=== PATIENT | female | born 1950 | race Caucasian/White ===

== ENCOUNTER → 2016-06-11 | Outpatient (CLI) | payer OTHER | END | disposition home or self-care (01) | LOC: GMAB 12:29 | PROVIDERS: ATTEND Family Medicine | DX: I10 Essential (primary) hypertension (principal) ==

== ENCOUNTER → 2017-01-13 | Outpatient (CLI) | payer OTHER | END | disposition home or self-care (01) | LOC: GMAB 11:12 | PROVIDERS: ATTEND Family Medicine | DX: M79.641 Pain in right hand (principal); M79.642 Pain in left hand ==

== ENCOUNTER → 2017-01-18 | Outpatient (CLI) | payer OTHER | END | disposition home or self-care (01) | LOC: BFHH 16:32 | PROVIDERS: ATTEND Family Medicine | DX: D64.9 Anemia, unspecified (principal) ==

== ENCOUNTER → 2017-02-08 | Outpatient (CLI) | payer OTHER ==
--- NOTE | 2017-02-09 10:29 | MRI ---
EXAM DESCRIPTION: Cervical Spine CLINICAL HISTORY: RADICULOPATHY COMPARISON: MRI scan cervical spine 05/31/2014. TECHNIQUE: Multiplanar MRI, multiple sequences, non-contrast High-field. FINDINGS: C5-6 fusion construct in the interval since the prior study with ACDF. Customary position and near-anatomic alignment. No soft tissue mass abutting the hardware. Bilateral uncinate spurs and moderate neural foraminal stenosis. No abnormal marrow edema in the vertebral bodies or the posterior elements. Mild to moderate canal narrowing. C4-5: Anterior and disc bulge and endplate ridging impressing on the posterior airway. Disc desiccation with posterior disc bulge 3 mm abutting the cord. Bilateral disc uncinate spur encroachment on the neural foramina with bilateral moderate neural foraminal stenosis. Facets are negative. C6-7: Minimal anterior disc bulge. Desiccated disc. Tiny posterior disc bulge not touching the disc. Moderate bilateral neural foraminal narrowing with fatty encasement of the bilateral naris. Posterior hypertrophy ligaments. Bilateral mild facet arthrosis. T1-2 discs with minimal desiccation with minimal posterior bulge not touching the cord. Canal and bilateral neural foraminal narrowing. Grade 1 anterolisthesis. C7-T1: Disc desiccation posterior midline bulge to 3 mm abutting the ventral cord. Disc bulge into the bilateral foramina. Mild neural foraminal stenosis from uncinate spur, and moderate neural foraminal narrowing on the left. Facet arthrosis on the right Normal signal in the C2-3 and C3-4 disks with no bulging. Disc spaces preserved. Canal and neural foramina are patent. Facets are unremarkable. No cord compression or cord edema. Spine is slightly kyphotic C1-C6. Atlantoaxial joint is minimally hypertrophied. Base of the cerebellar tonsils is above the level of the foramen magnum. Paravertebral soft tissues are unremarkable. Vertebral bodies are not compressed at any level. Normal marrow signal in the remaining vertebral bodies and the posterior elements. IMPRESSION: 1. ACDF fusion construct C5-C6. Customary position and near-anatomic alignment. No MRI evidence of complications with hardware. However bilateral uncinate spurs contributing to bilateral neural foraminal stenosis. 2. Bilateral disc and uncinate spur encroachment at C4-5 on the neural foramina with stenosis. Anterior disc bulge complex impressing on the posterior airway. Similar findings on the prior study. 3. Mild right neural foraminal stenosis C7-T1 from uncinate spur and disc. Electronically signed by: Manjinder Riley MD 02/09/2017 10:28 AM [facility]
== END | disposition home or self-care (01) ==
LOC: MRI 08:01
PROVIDERS: ATTEND Family Medicine
DX: M54.12 Radiculopathy, cervical region (principal)

== ENCOUNTER → 2017-07-15 | Outpatient (CLI) | payer OTHER ==
--- NOTE | 2017-07-16 09:15 | US ---
EXAM DESCRIPTION: Gall Bladder CLINICAL HISTORY: 67 years Female, EPIGASTRIC PN COMPARISON: None available. TECHNIQUE: Multiple transverse and longitudinal static sonographic images through the right upper quadrant of the abdomen were obtained. FINDINGS: Visualized portions of the pancreas appear normal. The liver demonstrates normal size and echogenicity with no intrahepatic biliary ductal dilatation. No focal masses are identified sonographically. The gallbladder is not well distended with possible sludge or small stones. No evidence of wall thickening or hyperemia or pericholecystic fluid. The common duct is nondilated and measures 3.3 mm. The right kidney measures 9.8 x 5.5 x 4.1 cm. No hydronephrosis or perinephric fluid collections. IMPRESSION: Contracted gallbladder with possible sludge or small stones. Otherwise normal ultrasound of the right upper quadrant. Electronically signed by: Noelle Hawkins MD 07/16/2017 9:14 AM CDT
== END ==
LOC: US 10:38
PROVIDERS: ATTEND Family Medicine
DX: R10.13 Epigastric pain (principal)

== ENCOUNTER → 2017-07-29 | Outpatient (CLI) | payer OTHER ==
--- NOTE | 2017-07-30 16:13 | NM ---
EXAM DESCRIPTION: Hepatobiliary w/CCK: Nuclear Medicine. CLINICAL HISTORY: R12,K8010,K219 COMPARISON: Ultrasound gallbladder 07/15/2017. TECHNIQUE: Patient was given 8.2 mCi of technetium 99 M mebrofenin radiopharmaceutical IV. Anterior gamma camera images were obtained of the right upper quadrant at 1 minute intervals for one hour . The patient was then given 14 ounces of .Ensure Plus fatty meal (11 g fat). Gallbladder ejection fraction was evaluated by measuring diminishing radioactivity in the gallbladder, over 30 min interval. FINDINGS: After administration of radiopharmaceutical IV, immediate visualization of the entire liver. Timely visualization of intrahepatic and extra hepatic ducts, duodenum and the gallbladder. No focal areas of abnormally increased or decreased activity in the liver. After patient was given fatty meal, mild epigastric pain was reproduced. Peak gallbladder activity approximately 2.5 minutes after fatty meal was ingested. Minimal gallbladder activity in approximately 29 minutes after fatty meal was ingested. Decrease in activity during this interval was 32.1%. IMPRESSION: 1. No intrahepatic or extrahepatic biliary dilatation. Timely visualization of the gallbladder and duodenum. 2. Gallbladder ejection fraction is 32 % which is below minimum normal range. This can be due to gallbladder dyskinesia or chronic cholecystitis. Electronically signed by: Manjinder Riley MD 07/30/2017 4:11 PM CDT
== END ==
LOC: NM 10:00
PROVIDERS: ATTEND Internal Medicine Gastroenterology
DX: R12 Heartburn (principal); K80.10 Calculus of gallbladder with chronic cholecystitis without obstruction; K21.9 Gastro-esophageal reflux disease without esophagitis; R10.13 Epigastric pain

== ENCOUNTER → 2017-08-11 | Outpatient (CLI) | payer OTHER ==
--- NOTE | 2017-08-12 09:13 | RAD ---
EXAM DESCRIPTION: Barium Swallow: Rad-Fluoroscopy. CLINICAL HISTORY: R12 ,K8010,K219 COMPARISON: Radionuclide hepatobiliary scan 07/29/2017. TECHNIQUE: The patient swallowed barium pill with water. The patient swallowed gas-producing granules, water, and heavy density barium under fluoroscopic visualization. The images were obtained with the patient standing and horizontal.. Patient drank medium density barium through a straw in the semi-prone position. 106 fluoroscopic cine loop images. 9 static fluoroscopic images. Total fluoroscopy time was 2.5 minutes.. DAP: 19.62 Gy-cm2.. FINDINGS: The barium pill was swallowed with water and was momentarily suspended at the gastroesophageal junction then entered the stomach. No laryngeal penetration or aspiration. Patient had 2 swallows with each bolus of contrast with the initial swallow having the largest volume. Primary peristaltic wave involving most of the esophagus. Minimal secondary contractions distally. Small sliding hiatal hernia, predominantly posterior to the esophageal lumen. No mass effect on the esophagus and no mucosal lesions. No rimma gastroesophageal reflux but minimal stasis of oral contrast in the distal esophagus. No gross abnormalities of the stomach. No gastroduodenal obstruction. Sternotomy wires are noted as well as cardiac valve replacements. IMPRESSION: 1. No laryngeal penetration or aspiration. 2. No mass effect on the esophagus and no mucosal lesions. Secondary contractions distal esophagus. Small sliding hiatal hernia. No significant gastroesophageal reflux. Electronically signed by: Manjinder Riley MD 08/12/2017 9:12 AM CDT
== END ==
LOC: RAD 08-05 08:51
PROVIDERS: ATTEND Internal Medicine Gastroenterology
DX: R12 Heartburn (principal); K80.10 Calculus of gallbladder with chronic cholecystitis without obstruction; K21.9 Gastro-esophageal reflux disease without esophagitis; R10.13 Epigastric pain

== ENCOUNTER → 2017-10-06 | Outpatient (CLI) | payer OTHER | LOC: GMAE 10:50 | PROVIDERS: ATTEND Family Medicine | DX: I10 Essential (primary) hypertension (principal) ==

== ENCOUNTER 2018-09-03 19:51 | Emergency (ER) | payer OTHER ==
[2018-09-03] MEDS ORDERED: CHLORHEXIDINE GLUCONATE 4 % 15 ML UD TOP ONE (20:00)
[2018-09-03] MEDS ORDERED: LIDOCAINE 1% 10 ML VIAL INJ ONE (20:01)
--- NOTE | 2018-09-03 20:16 | ED.PDOC ---
History of Present Illness - General Chief Complaint: Laceration Stated Complaint: right thumb laceration Time Seen by Provider: 09/03/18 20:13 Source: patient Exam Limitations: no limitations - History of Present Illness Initial Comments: Carlie Garcia 68 y/o female stated had laceration on right thumb accidentally injure it with jerilyn while peeling vegetable at home. Timing/Duration: this evening Severity: moderate Location: extremities - right thumb Improving Factors: nothing Worsening Factors: movement Associated Symptoms: change in skin texture Allergies/Adverse Reactions: Allergies Codeine Allergy (Verified 09/03/18 20:18) Home Medications: Ambulatory Orders Amoxicillin [Amoxil] 1,000 mg PO BID 7 Days #28 cap 09/03/18 Review of Systems - Review of Systems Skin: States: see HPI, other - laceration Past Medical History (General) - Patient Medical History Hx Cardiac Disorders: Yes Hx Hypertension: Yes Surgical History: other - heart valve replacement;carotid endaterectomy,c- section,low back surgery - Vaccination History Immunizations Up to Date: Yes - Boostrix given in ER 03 September 2018 - Social History Hx Tobacco Use: Yes - quit Family Medical History - Family History Father Hx Family Hypertension: Yes - mom Hx Family Cancer: Yes - dad-lungs Mother Family History: Unknown Physical Exam - Physical Exam General Appearance: Alert, Comfortable, No apparent distress Eyes, Ears, Nose, Throat Exam: normal ENT inspection Neck: normal inspection Cardiovascular/Chest: normal peripheral pulses, regular rate, rhythm, no murmur Respiratory: chest non-tender, normal breath sounds Gastrointestinal/Abdominal: non tender, soft Back Exam: normal inspection Extremity: no pedal edema, no calf tenderness Neurologic: alert, oriented x 3 Skin Exam: warm/dry, normal color Skin Problem Location: upper extremities - right thumb Skin Character: other - 2.8 cm laceration right thumb Progress - Progress Progress: 09/03/18 20:20 Vital Signs - 8 hr 09/03/18 19:53 Temperature 97.6 F Pulse Rate [ 86 monitor] Respiratory 20 Rate Blood Pressure 127/85 [Left Arm] O2 Sat by Pulse 100 Oximetry 09/03/18 20:58 No allergies to hyrocodone 09/03/18 21:21 Discuss X-ray result right thumb with patient - EKG/XRAY/CT XRAY: thumb right-no FX Procedures - Laceration/Wound Repair Right Finger Wound Length (cm): 2.8 Wound's Depth, Shape: flap, nail-avulsed - partially Wound Explored: no foreign body removed Irrigated w/ Saline (cc's): 50 Betadine Prep?: No - hibiclens Anesthesia: 1% Lidocaine Volume Anesthetic (cc's): 8 Wound Repaired With: sutures Suture Size/Type: 4:0 Number of Sutures: 8 Sterile Dressing Applied?: Yes Departure - Departure Clinical Impression: Laceration of right thumb with damage to nail Qualifiers: Encounter type: initial encounter Foreign body presence: without foreign body Qualified Code(s): S61.111A - Laceration without foreign body of right thumb with damage to nail, initial encounter Time of Disposition: 21:19 Disposition: Discharge to Home or Self Care Condition: Fair Departure Forms: ED Discharge - Pt. Copy, Patient Portal Self Enrollment Instructions: DI for Laceration Repair, DI for Laceration Repair -- Finger Prescriptions: Amoxicillin [Amoxil] 1,000 mg PO BID 7 Days #28 cap Home Medications: Ambulatory Orders Amoxicillin [Amoxil] 1,000 mg PO BID 7 Days #28 cap 09/03/18 Additional Instructions: Removal of sutures 15 September 2018 ;Return to emergency room as needed
[2018-09-03] MEDS ORDERED: AMOXICILLIN 500 MG CAP PO ONE (20:57)
[2018-09-03] MEDS ORDERED: HYDROCOD/APAP 10/325 (ER DISP) # 3 tablets PO ONE (20:58)
[2018-09-03] MEDS ORDERED: NEOMYCIN-BACITRACIN-POLYMYXIN 0.9 GM UD TOP ONE (21:01)
--- NOTE | 2018-09-03 21:10 | RAD ---
EXAM DESCRIPTION: Thumb,Right CLINICAL HISTORY: 68 years Female laceration COMPARISON: None TECHNIQUE: Two images of the right thumb were obtained. FINDINGS: No fracture seen. Mild bony demineralization. Marked degenerative artery interphalangeal joint right thumb. No radiopaque foreign body seen. IMPRESSION: No acute fracture or dislocation seen. Marked degenerative change interphalangeal joint. Electronically signed by: Sima Kahn MD 09/03/2018 9:07 PM CDT
[2018-09-03] MEDS ORDERED: TETANUS,DIPHTHERIA,PERTUSSIS 1 EA SYG IM ONE (21:24)
[2018-09-03 21:37] VITALS: BP 120/89; TEMP 97.9; O2SAT 96
== END 2018-09-03 21:38 | disposition home or self-care (01) ==
LOC: ER 19:51
DX: S61.111A Laceration without foreign body of right thumb with damage to nail, initial encounter (principal); I51.9 Heart disease, unspecified; I10 Essential (primary) hypertension; Z87.891 Personal history of nicotine dependence; Z95.2 Presence of prosthetic heart valve; W27.8XXA Contact with other nonpowered hand tool, initial encounter; Y93.G1 Activity, food preparation and clean up; Y92.009 Unspecified place in unspecified non-institutional (private) residence as the place of occurrence of the external cause

== ENCOUNTER 2018-11-08 16:26 | Emergency (ER) | payer OTHER ==
[2018-11-08 16:54] VITALS: TEMP 98.6; O2SAT 97
--- NOTE | 2018-11-08 17:01 | RAD ---
EXAM DESCRIPTION: Chest,2 Views CLINICAL HISTORY: Cp COMPARISON: July 26, 2011 TECHNIQUE: PA/lateral FINDINGS: Since remote chest examination the patient has undergone sternotomy with apparent aortic and mitral valve replacements with normal sized heart and borderline or upper normal vascular prominence and coarse markings in the lung bases without pleural effusions. Compensated interstitial vascular prominence is suspected. Lobar segmental consolidation is not apparent. No hilar or mediastinal disease is seen. IMPRESSION: Interval sternotomy since 2012 examination with aortic and mitral valve replacement with normal sized heart but upper normal vascularity and interstitial markings. Overt edema or dense consolidation are not apparent. Electronically signed by: Ha Henley MD 11/08/2018 4:59 PM CDT
--- NOTE | 2018-11-08 19:01 | ED.PDOC ---
History of Present Illness - General Chief Complaint: Chest Pain/NE Stated Complaint: chest pain Time Seen by Provider: 11/08/18 16:28 - History of Present Illness Initial Comments: Patient is a 68 yo F with previous hx of CAD presenting with chest tightness and pressure. She just found out that her . She is currently having central chest pressure and shortness of breath. She denies recent cough, congestion, fevers, chills, nausea, vomiting or diaphoresis. She has been feeling well over the past few days. She denies any leg swelling, hemoptysis, leg pain, recent travel or recent surgeries. Allergies/Adverse Reactions: Allergies Codeine Allergy (Verified 11/08/18 16:31) Home Medications: Ambulatory Orders RX: Amoxicillin [Amoxil] 1,000 mg PO BID 7 Days #28 cap 09/03/18 Review of Systems - Review of Systems Constitutional: States: no symptoms reported EENTM: States: no symptoms reported Cardiology: States: chest pain Gastrointestinal/Abdominal: States: no symptoms reported Genitourinary: States: no symptoms reported Musculoskeletal: States: no symptoms reported Past Medical History (General) - Patient Medical History Hx Seizures: No Hx Stroke: Yes Hx Dementia: No Hx Asthma: No Hx of COPD: No Hx Cardiac Disorders: Yes - valves x2 replaced Hx Congestive Heart Failure: No Hx Pacemaker: No Hx Hypertension: Yes Hx Thyroid Disease: No Hx Diabetes: No Hx Gastroesophageal Reflux: Yes Hx Renal Disease: No Hx Cancer: No Hx of HIV: No Hx Hepatitis C: No Hx MRSA: No Surgical History: other - Vaccination History Hx Tetanus, Diphtheria Vaccination: No Hx Influenza Vaccination: Yes Hx Pneumococcal Vaccination: Yes - Social History Hx Tobacco Use: Yes - quit Hx Alcohol Use: No Family Medical History - Family History Father Hx Family Hypertension: Yes - mom Hx Family Cancer: Yes - dad-lungs Mother Family History: Unknown Physical Exam - Physical Exam General Appearance: Alert, Anxious, Obvious distress Neck: non-tender, full range of motion, supple Respiratory: chest non-tender, lungs clear, normal breath sounds, no respiratory distress, no accessory muscle use Cardiovascular/Chest: normal peripheral pulses, regular rate, rhythm, no edema, no gallop Peripheral Pulses: radial,right: 2+, radial,left: 2+, dorsalis pedis,right: 2+, dorsalis pedis,left: 2+, posterior tibialis,right: 2+, posterior tibialis,left: 2+ Gastrointestinal/Abdominal: normal bowel sounds, non tender, soft Progress - Progress Progress: 11/09/18 07:35 Patient presents for evaluation of chest pain following the of her . She was acutely distressed on arrival and anxious. EKG was not significant for underlying ischemic changes. Following treatment with Ativan, she did feel much better with resolution in her chest pain. CBC, CMP and Cardiac panel were WNL. She denied any re-occurence of the pain after benzo treatment. She was observed with no more symptoms. Two hour delta troponin was obtained and found to be negative. She has no PE risk factors and her chest pain seems more anxiety and stress induced. Patient will be discharged home with plans for outpatient follow-up. - Results/Orders Results/Orders: 11/08/18 17:00 EKG STAT Laboratory Results - last 24 hr 11/08/18 11/08/18 16:37 18:29 WBC 16.7 H RBC 4.60 Hgb 13.9 Hct 42.0 MCV 91.4 MCH 30.3 MCHC 33.2 RDW 13.8 Plt Count 182 MPV 9.6 Absolute Neuts (auto) 14.00 H Absolute Lymphs (auto) 1.30 Absolute Monos (auto) 1.30 H Absolute Eos (auto) 0.00 Absolute Basos (auto) 0.10 Neutrophils % 83.9 H Lymphocytes % 7.7 L Monocytes % 7.9 Eosinophils % 0.1 L Basophils % 0.4 PT 13.7 H INR 1.37 H PTT (SP) 45.6 H* Sodium 137 Potassium 3.9 Chloride 99 L Carbon Dioxide 22 Anion Gap 19.9 H BUN 17 Creatinine 0.88 BUN/Creatinine Ratio 19.3 Random Glucose 140 H Serum Osmolality 277.7 Calcium 9.9 Magnesium 2.0 Creatine Kinase 72 CK-MB (CK-2) 1.8 1.7 CK-MB (CK-2) % Not Reportable Troponin I < 0.02 < 0.02 Departure - Departure Clinical Impression: Chest pain Time of Disposition: 19:00 Disposition: Discharge to Home or Self Care Condition: Fair Departure Forms: ED Discharge - Pt. Copy, Patient Portal Self Enrollment Instructions: DI for Chest Pain Diet: resume usual diet Activity: increase activity as tolerated Referrals: Pedro Aldrich MD [Active Staff] - 1-2 Weeks Home Medications: Ambulatory Orders RX: Amoxicillin [Amoxil] 1,000 mg PO BID 7 Days #28 cap 09/03/18 Comments: Tin Cardona D.O. [facility] #[id number]
[2018-11-08] MEDS ORDERED: LORazepam 0.5 MG TAB PO ONE ×2 (19:05→19:25)
[2018-11-08 19:42] VITALS: BP 170/80
== END 2018-11-08 19:42 | disposition home or self-care (01) ==
LOC: ER 16:26
DX: R07.89 Other chest pain (principal); I10 Essential (primary) hypertension; K21.9 Gastro-esophageal reflux disease without esophagitis; Z86.73 Personal history of transient ischemic attack (TIA), and cerebral infarction without residual deficits; Z95.2 Presence of prosthetic heart valve; Z87.891 Personal history of nicotine dependence; Z88.5 Allergy status to narcotic agent
CPT/HCPCS: 36415; 71046; 80048; 82550; 82553; 84484; 85025; 85610; 85730; 93005; J2060

== ENCOUNTER → 2018-11-30 | Outpatient (CLI) | payer OTHER | LOC: GMAE 11:47 | PROVIDERS: ATTEND Family Medicine | DX: I10 Essential (primary) hypertension (principal); E11.9 Type 2 diabetes mellitus without complications; E78.2 Mixed hyperlipidemia ==

== ENCOUNTER → 2018-12-01 | Outpatient (CLI) | payer OTHER ==
--- NOTE | 2018-12-02 10:12 | US ---
EXAM DESCRIPTION: Soft Tissue,Extremity: ULTRASOUND. CLINICAL HISTORY: 68 years Female PAIN IN LEFT HAND lumps in the left palm. COMPARISON: None Available. TECHNIQUE: Transcutaneous scanning: Chinchilla-scale and Doppler modes. FINDINGS: Scanning of the left palm. Hypoechoic nodules in these subcutaneous adipose tissue measuring 4.6 x 2.8 mm and 5.1 x 3.0 mm. No abnormal vascularity. No distinct cysts. No calcifications. IMPRESSION: Soft tissue nodules in the subcutaneous adipose tissues of the left palm. No fluid. Electronically signed by: Manjinder Riley MD 12/02/2018 10:10 AM CDT
--- NOTE | 2018-12-06 13:32 | MAM ---
EXAM DESCRIPTION: 3D Screening BILATERAL : Digital Mammography. CLINICAL HISTORY: 68 years Female ANNUAL SCREENING . No complaints. No personal or family history of breast cancer. Menarche age 14. Childbirth. Postmenopausal 20+ years. No HRT. Lifetime risk of developing breast cancer (Tyrer-Cuzick model)(%): 7.9. COMPARISON: 2-D digital bilateral screening mammography 04/18/2014. No prior reports available. TECHNIQUE: Bilateral CC and MLO projection full-field images, digital tomosynthesis mammographic technique. Bilateral digital 2-D full-field MLO images. CAD not available for tomosynthesis or 2-D images. FINDINGS: The breast parenchymal density pattern is: Scattered areas of fibroglandular density. No skin thickening or nipple retraction. Bilateral vascular calcifications. Bilateral solitary microcalcifications. Bilateral axillary lymph nodes. No new focal, stellate mass or density, focal asymmetry , and no suspicious microcalcifications bilaterally. Stable mammograms compared to prior study. Taking into account, differences in mammographic technique. IMPRESSION: Benign exam. BIRAD CATEGORY: 2 BENIGN FINDINGS. RECOMMENDATIONS: FOLLOW UP: Routine digital bilateral mammographic screening, one year interval from November 2018. Written communication explaining the IMPRESSION and follow-up, will be mailed to the patient and referring health care provider. According to the [employer], yearly mammograms are recommended starting at age 40 and continuing as long as a woman is in good health. Any breast change noted on a breast self-exam should be reported promptly to the patient's healthcare provider. Breast MRI is recommended for women with an approximately 20-25% or greater lifetime risk of breast cancer, including women with a strong family history of breast or ovarian cancer and women who have been treated for Hodgkin's disease. A negative mammographic report should not delay tissue diagnosis in patients with significant clinical history or physical findings. Extremely dense breast tissue limits the sensitivity of digital mammography. Electronically signed by: Manjinder Riley MD 12/06/2018 1:30 PM CDT
== END ==
LOC: US 10:00
PROVIDERS: ATTEND Family Medicine
DX: Z12.31 Encounter for screening mammogram for malignant neoplasm of breast (principal); R22.32 Localized swelling, mass and lump, left upper limb; M79.642 Pain in left hand

== ENCOUNTER → 2018-12-21 | Outpatient (CLI) | payer OTHER ==
--- NOTE | 2018-12-22 16:36 | CT ---
Procedure: CT LUNG SCREENING Exam Date: 12/21/2018 Ordering Provider: Petr Mckinley Clinical Indication: HX OF TOBACCO USE . Smoking cessation 2 years. 30 pack years. This patient meets eligibility criteria for low-dose CT lung cancer screening. Comparison: 2 view chest x-ray 08 November 2018. Technique: Using a multislice scanner, sequential helical axial imaging was obtained in the thorax, 2.5 mm thickness, 2.5 mm separation, from the level of the thoracic inlet through the lung bases without IV contrast. A low dose protocol was utilized for BMI less than 30: BMI: 28. CTDI: 1.76 mGy. 120. kVp. 45 mA. DLP 73.3 mGy-centimeters. 2D sagittal and coronal reconstructed images, 6.0 mm thickness, were obtained. This exam was performed according to our departmental dose optimization program which includes use of automated exposure control, adjustment of the mA and/or kV according to patient size and/or use of iterative reconstruction technique. Nodule measurements under 10 mm are given as mean value of 3 axes diameters. FINDINGS: Lungs and large airways: Emphysematous changes bilateral lungs with multiple blebs predominantly in the upper lung maxwell bilaterally in a centrilobular distribution. 4.9 mm focal pleural thickening versus solid subpleural nodule medial left apex on image 2/19. Pleural parenchymal scarring inferior lingula and left lower lobe. Bilateral minimal perihilar peribronchial wall thickening. Pleura and space: Unremarkable except for scattered focal thickening. Mediastinum and danny: evaluation limited by low dose technique and lack of IV contrast. 1.5 x 1.0 cm azygous node and a second azygous node also present. Small pretracheal nodes AP window nodes and subcarinal nodes. No dominant solid mass. Heart and great vessels: Atherosclerotic calcifications. Ectatic ascending aortic arch. Brachiocephalic vessels, aorta, and coronary vessels. Prior aortic valve and mitral valve surgery. Chest wall, lower neck, axillae: Evaluation also limited by same factors as described above. Sternotomy wires. Axillary lymph nodes. Heterogeneous thyroid gland. Bilateral nodules in the breasts. Upper abdomen: Evaluation limited by low-dose technique. No free fluid or free air. Normal size and density of the adrenal glands and spleen. Gallbladder contracted. Osseous structures: Evaluation limited by low dose MIP technique. Spondylosis multiple levels of the thoracic spine. ACDF lower cervical spine. IMPRESSION: 1. 4.9 mm medial left apical subpleural solid nodule versus focal apical medial wall pleural thickening. Emphysematous changes in bilateral upper lobes. No abnormal nodule, or mass. No focal infiltrate. Scattered pleural thickening. Prior cardiac surgery. Minimally enlarged lymph nodes. [facility] Best Practice Recommendations: please see below for Lung RADS category and FOLLOW-UP.* *Lung RADS category CATEGORY 2S- Nodules with a very low likelihood (less than 1%) of becoming a clinically active cancer due to size or lack of growth. Nodules: Perifissural nodule(s) < 10 mm. (526mm3). Solid or part solid nodule(s) less than 6mm (113.1 mm3), new solid nodule less than 4mm (33.5 mm3). Ground glass nodule(s) less than 30mm (56601.2 mm3) or unchanged or slow growing ground glass nodule 30mm or greater. Cat 3 or 4 nodule unchanged for 3 or more months. FOLLOW-UP: Continue annual screening with a Low Dose Chest CT in 12 months for re-evaluation. 2. Borderline enlarged mediastinal lymph nodes. Compare to prior chest CT scans if available. Electronically signed by: Manjinder Riley MD 12/22/2018 4:35 PM CDT
== END ==
LOC: CT 14:00
PROVIDERS: ATTEND Family Medicine
DX: Z87.891 Personal history of nicotine dependence (principal); R91.1 Solitary pulmonary nodule; J43.9 Emphysema, unspecified; R91.8 Other nonspecific abnormal finding of lung field

== ENCOUNTER 2019-06-20 12:12 | Emergency (ER) | payer OTHER ==
[2019-06-20] MEDS ORDERED: ASPIRIN TABLET 325 MG TAB PO ONE (12:20)
[2019-06-20] MEDS ORDERED: NITROGLYCERIN 0.4 MG 25 EA TAB SL ONE (12:20)
[2019-06-20] MEDS ORDERED: SODIUM CHLORIDE 0.9% (FLUSH) 10 ML SYG IV PRN (12:20)
--- NOTE | 2019-06-20 12:21 | ED.PDOC ---
History of Present Illness - General Chief Complaint: Chest Pain/OH Stated Complaint: chest pain Time Seen by Provider: 06/20/19 12:20 Source: patient, RN notes reviewed, Vital Signs reviewed Exam Limitations: no limitations - History of Present Illness Initial Comments: Patient is a 68-year-old white female who presents with complaints of substernal chest pain starting at 8 AM this morning. The chest pain radiated to the right chest and into her back. She had some mild nausea and shortness of breath. She denied any diaphoresis. She also denied any vomiting. Patient states that she has had bypass surgery as well as 2 valves replaced approximately 2-1/2 years ago. 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 Patient has seen Dr. Novoa in the past. Patient denies any headaches, blurry vision, dizziness or weakness. The chest pain was pressure-like in nature. Moderate in intensity. Lasted for approximately 4 hours. Was relieved with nitroglycerin. Nothing seemed to bring the chest pain on a just started on its own. Timing/Duration: 4-6 hours Severity/Quality: moderate, pressure Location: substernal Chest Pain Radiation: back Activities at Onset: none Prior Chest Pain/Cardiac Workup: other - Patient has had bypass surgery and valve replacement per her history. Improving Factors: medication - Nitroglycerin Nitro Today/Relief: 0.4 mg x 1 - Patient given Nitropaste, 1/2 inch to the chest wall. She did not receive any sublingual nitroglycerin., provided by ED, complete relief Aspirin Treatment Today: 81 mg x 4 Associated Symptoms: back pain, nausea/vomiting - Nausea only, shortness of breath - Mild shortness of breath Allergies/Adverse Reactions: Allergies Codeine Allergy (Verified 11/08/18 16:31) Home Medications: Ambulatory Orders Amoxicillin [Amoxil] 1,000 mg PO BID 7 Days #28 cap 09/03/18 ALPRAZolam [Xanax] 0.25 mg PO BID PRN 06/20/19 Bupropion HCl [Bupropion Hydrochloride] 75 mg PO BID 06/20/19 Cetirizine HCl [ZyrTEC] 10 mg PO DAILY 06/20/19 Citalopram Hydrobromide [Citalopram] 40 mg PO DAILY 06/20/19 Clopidogrel Bisulfate 75 mg PO DAILY 06/20/19 Cyanocobalamin [Vitamin B-12] 1,000 mcg PO DAILY 06/20/19 Dexlansoprazole [Dexilant] 60 mg PO DAILY 06/20/19 Ferrous Gluconate 324 mg PO DAILY 06/20/19 Gabapentin 900 mg PO TID 06/20/19 Lisinopril 10 mg PO BID 06/20/19 Metoprolol Tartrate 50 mg PO BEDTIME 06/20/19 Metoprolol Tartrate 100 mg PO DAILY 06/20/19 Multiple Vitamins W/ Minerals [Multivitamin Adults] 2 tab PO DAILY 06/20/19 QUEtiapine FUMARATE [SEROquel] 12.5 mg PO BEDTIME 06/20/19 Rivaroxaban [Xarelto] 20 mg PO DAILY 06/20/19 Simvastatin 40 mg PO BEDTIME 06/20/19 Review of Systems - Review of Systems Constitutional: States: no symptoms reported, see HPI. Denies: chills, fever, weakness EENTM: States: no symptoms reported. Denies: eye pain, double vision, nose congestion Respiratory: States: no symptoms reported, see HPI. Denies: cough, short of breath, wheezing Cardiology: States: see HPI, chest pain. Denies: palpitations, syncope Gastrointestinal/Abdominal: States: see HPI, nausea. Denies: abdominal pain, diarrhea, vomiting Genitourinary: States: no symptoms reported Musculoskeletal: States: see HPI, back pain. Denies: neck pain Skin: States: no symptoms reported. Denies: change in color, rash Neurological: States: no symptoms reported. Denies: headache, numbness, weakness Endocrine: States: no symptoms reported Hematologic/Lymphatic: States: no symptoms reported All other Systems: No Change from Baseline Past Medical History (General) - Patient Medical History Hx Seizures: No Hx Stroke: Yes Hx Dementia: No Hx Asthma: No Hx of COPD: No Hx Cardiac Disorders: Yes - valves x2 replaced Hx Congestive Heart Failure: No Hx Pacemaker: No Hx Hypertension: Yes Hx Thyroid Disease: No Hx Diabetes: No Hx Gastroesophageal Reflux: Yes Hx Renal Disease: No Hx Cancer: No Hx of HIV: No Hx Hepatitis C: No Hx MRSA: No - Vaccination History Hx Tetanus, Diphtheria Vaccination: No Hx Influenza Vaccination: Yes Hx Pneumococcal Vaccination: Yes - Social History Hx Tobacco Use: Yes - quit Hx Alcohol Use: No Family Medical History - Family History Mother Family History: Unknown Father Hx Family Hypertension: Yes - mom Hx Family Cancer: Yes - dad-lungs Physical Exam - Physical Exam General Appearance: Alert, Anxious, Well Developed, Well Groomed, Well Hydrated, Well Nourished Eyes, Ears, Nose, Throat Exam: PERRL/EOMI, normal ENT inspection, pharynx normal Neck: non-tender, full range of motion, supple, normal inspection Respiratory: chest non-tender, lungs clear, normal breath sounds, no respiratory distress, no accessory muscle use Cardiovascular/Chest: normal peripheral pulses, regular rate, rhythm, no edema, no gallop, no JVD, no murmur Peripheral Pulses: radial,right: 2+, radial,left: 2+ Gastrointestinal/Abdominal: normal bowel sounds, non tender, soft, no organomegaly, no pulsatile mass, abnormal bowel sounds Extremity: normal range of motion, non-tender, no pedal edema 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 06/20/19 13:49 Patient is now chest pain-free. Initial set of cardiac enzymes are negative but patient is a high risk patient and therefore, I will transfer her to [facility] for further evaluation by cardiology. I discussed this plan of care with the patient and she voices understanding and agreement. I have acceptance from [facility] hospitalist, Dr. Newsome. Plan transfer at this time. Nikolai Alvarado M.D. #[id number] - Results/Orders Results/Orders: EKG performed 20 June 2019 at 1216 hrs.: Normal sinus rhythm at 81 bpm, T wave abnormalities laterally concerning for ischemia, prolonged QT at 434 ms, abnormal EKG. No comparison EKG available at this time. EXAM DESCRIPTION: Chest,1 View CLINICAL HISTORY: 68 years Female, chest pain COMPARISON: None. TECHNIQUE: AP portable chest. FINDINGS: Heart size is prominent with normal pulmonary vascularity. Sternotomy wires are present. Plate and screws in lower C-spine. No consolidating infiltrate. No pulmonary mass or worrisome nodule. No pneumothorax or pleural effusion. Bones are unremarkable. IMPRESSION: Prominent heart without congestive failure. Electronically signed by: Michael Pan MD 06/20/2019 1:06 06/20/19 12:20 Telemetry .ONCE Sodium Chloride 0.9% (Flush) [Saline Flush Syringe] 10 ml IV PRN PRN EKG Stat Pulse Ox Stat Laboratory Results - last 24 hr 06/20/19 12:00 WBC 9.9 RBC 4.44 Hgb 13.4 Hct 39.7 MCV 89.4 MCH 30.3 MCHC 33.8 RDW 13.3 Plt Count 141 MPV 9.9 Absolute Neuts (auto) 6.80 Absolute Lymphs (auto) 2.10 Absolute Monos (auto) 0.80 Absolute Eos (auto) 0.20 Absolute Basos (auto) 0.10 Neutrophils % 68.5 Lymphocytes % 20.9 Monocytes % 7.8 Eosinophils % 1.6 Basophils % 1.2 PT 9.9 INR 1.00 PTT (SP) 24.3 Sodium 138 Potassium 4.1 Chloride 106 Carbon Dioxide 22 Anion Gap 14.1 BUN 14 Creatinine 0.86 BUN/Creatinine Ratio 16.3 Random Glucose 177 H Serum Osmolality 280.5 Calcium 8.5 Magnesium 1.6 L Total Bilirubin 1.2 H Direct Bilirubin 0.3 H Indirect Bilirubin 0.9 H AST 44 H ALT 22 Alkaline Phosphatase 112 Creatine Kinase 50 CK-MB (CK-2) 1.5 CK-MB (CK-2) % Not Reportable Troponin I < 0.02 B-Natriuretic Peptide 65.3 Serum Total Protein 6.9 Albumin 3.6 Departure - Departure Clinical Impression: Hypokalemia Chest pain Qualifiers: Chest pain type: unspecified Qualified Code(s): R07.9 - Chest pain, unspecified Time of Disposition: 13:30 Disposition: Transfer to Hospital Condition: Good Departure Forms: ED Discharge - Pt. Copy, Patient Portal Self Enrollment Instructions: DI for Chest Pain Referrals: MNIH MORA MD [Active Staff] - 1-2 Weeks Home Medications: Ambulatory Orders Amoxicillin [Amoxil] 1,000 mg PO BID 7 Days #28 cap 09/03/18 ALPRAZolam [Xanax] 0.25 mg PO BID PRN 06/20/19 Bupropion HCl [Bupropion Hydrochloride] 75 mg PO BID 06/20/19 Cetirizine HCl [ZyrTEC] 10 mg PO DAILY 06/20/19 Citalopram Hydrobromide [Citalopram] 40 mg PO DAILY 06/20/19 Clopidogrel Bisulfate 75 mg PO DAILY 06/20/19 Cyanocobalamin [Vitamin B-12] 1,000 mcg PO DAILY 06/20/19 Dexlansoprazole [Dexilant] 60 mg PO DAILY 06/20/19 Ferrous Gluconate 324 mg PO DAILY 06/20/19 Gabapentin 900 mg PO TID 06/20/19 Lisinopril 10 mg PO BID 06/20/19 Metoprolol Tartrate 50 mg PO BEDTIME 06/20/19 Metoprolol Tartrate 100 mg PO DAILY 06/20/19 Multiple Vitamins W/ Minerals [Multivitamin Adults] 2 tab PO DAILY 06/20/19 QUEtiapine FUMARATE [SEROquel] 12.5 mg PO BEDTIME 06/20/19 Rivaroxaban [Xarelto] 20 mg PO DAILY 06/20/19 Simvastatin 40 mg PO BEDTIME 06/20/19 Transfer to Outside Facility - Transfer Information Decision to Transfer Date: 06/20/19 Decision to Transfer Time: 13:30 Reason for Transfer: required specialist not available Accepting Facility: [facility]
[2019-06-20] MEDS ORDERED: NITROGLYCERIN 2% 1 GM UD TOP ONE ×2 (12:32→12:37)
[2019-06-20 12:37] VITALS: O2SAT 98
--- NOTE | 2019-06-20 13:08 | RAD ---
EXAM DESCRIPTION: Chest,1 View CLINICAL HISTORY: 68 years Female, chest pain COMPARISON: None. TECHNIQUE: AP portable chest. FINDINGS: Heart size is prominent with normal pulmonary vascularity. Sternotomy wires are present. Plate and screws in lower C-spine. No consolidating infiltrate. No pulmonary mass or worrisome nodule. No pneumothorax or pleural effusion. Bones are unremarkable. IMPRESSION: Prominent heart without congestive failure. Electronically signed by: Michael Pan MD 06/20/2019 1:06 PM CDT
[2019-06-20 15:02] VITALS: BP 119/65; TEMP 97.1
== END 2019-06-20 14:25 | disposition short-term general hospital (02) ==
LOC: ER 12:12
DX: R07.9 Chest pain, unspecified (principal); E87.6 Hypokalemia; R11.0 Nausea; R06.02 Shortness of breath; I10 Essential (primary) hypertension; Z95.2 Presence of prosthetic heart valve; Z87.891 Personal history of nicotine dependence; Z79.899 Other long term (current) drug therapy

== ENCOUNTER → 2019-10-03 | Outpatient (CLI) | payer OTHER | LOC: LAB.O 11:40 | PROVIDERS: ATTEND Family Medicine | DX: I10 Essential (primary) hypertension (principal); E78.5 Hyperlipidemia, unspecified; R53.83 Other fatigue ==

== ENCOUNTER → 2020-01-01 | Outpatient (CLI) | payer OTHER | LOC: LAB 11:32 | PROVIDERS: ATTEND Family Medicine | DX: I10 Essential (primary) hypertension (principal); E78.5 Hyperlipidemia, unspecified; R53.83 Other fatigue ==

== ENCOUNTER → 2020-02-12 | Outpatient (CLI) | payer OTHER | LOC: YCFC.O 16:27 | PROVIDERS: ATTEND Family Medicine | DX: G62.9 Polyneuropathy, unspecified (principal); E11.9 Type 2 diabetes mellitus without complications ==

== ENCOUNTER → 2020-02-20 | Outpatient (CLI) | payer OTHER ==
--- NOTE | 2020-02-21 08:48 | RAD ---
EXAM DESCRIPTION: Chest,2 Views CLINICAL HISTORY: BRONCHITIS COMPARISON: Previous chest x-ray June 20, 2019 TECHNIQUE: PA/lateral FINDINGS: Sternotomy wires are present. Plate and screws in the lower C-spine. Heart size is large with centrally prominent pulmonary vascularity. No pleural effusion or pneumothorax. Obscuration of the left heart margin similar to previous study May BE prominent epicardial fat pad or chronic scarring in the lingula. No new density to suggest an acute pneumonic infiltrate. Lateral view shows intact sternum and T-spine. IMPRESSION: Large heart with centrally prominent pulmonary vessels. Electronically signed by: Michael Pan MD 02/21/2020 8:47 AM [employer]
== END ==
LOC: YCFC.O 11:38
PROVIDERS: ATTEND Family Medicine
DX: Z03.89 Encounter for observation for other suspected diseases and conditions ruled out (principal); Z03.818 Encounter for observation for suspected exposure to other biological agents ruled out; J40 Bronchitis, not specified as acute or chronic; I51.7 Cardiomegaly; I28.8 Other diseases of pulmonary vessels

== ENCOUNTER → 2020-02-28 | Outpatient (CLI) | payer OTHER ==
--- NOTE | 2020-02-29 08:27 | US ---
EXAM DESCRIPTION: Extremity,Lower Carlos Arteries: Ultrasound. CLINICAL HISTORY: PVD COMPARISON: None. TECHNIQUE: Doppler evaluation of the bilateral lower extremity arterial flow waveforms and velocities. FINDINGS: Arterial waveforms in the right lower extremity are multiphasic. Arterial waveforms in the left lower extremity are multiphasic from the left common femoral artery through the left popliteal artery. Sporadic multiphasic waveforms in the left peroneal artery, left posterior tibial artery, and left dorsalis pedis artery.. Comments: Velocities are also decreased below the left popliteal artery. IMPRESSION: Doppler ultrasound of the bilateral lower extremity arterial system shows no evidence of significant atherosclerotic occlusive disease in the right lower extremity. Early to mild atherosclerotic occlusive disease distal to the left popliteal artery. Electronically signed by: Manjinder Riley MD 02/29/2020 8:25 AM [facility]
== END ==
LOC: US 10:48
PROVIDERS: ATTEND Family Medicine
DX: I70.212 Atherosclerosis of native arteries of extremities with intermittent claudication, left leg (principal); I25.10 Atherosclerotic heart disease of native coronary artery without angina pectoris